=== PATIENT | male | born 1940 | race Caucasian/White ===

== ENCOUNTER 2018-04-29 11:33 | Emergency (ER) | payer OTHER ==
[~2018-04-29] VITALS: Ht 175.3 cm; Wt 90.7 kg
[2018-04-29] MEDS ORDERED: TRAZODONE HCL50 MG PO (11:50)
[2018-04-29] MEDS ORDERED: SODIUM CHLORIDE 0.9% 1000ML 1,000 ML IV ONE (12:15)
--- NOTE | 2018-04-29 13:42 | NUR ---
Connie miranda in ED - 04/29/18 at 1345 by AMELIA +HYPOTENTION WITH DIZZINESS AT DISCHARGE ONCE UP; PT LAID BACK INTO STRETCHER BED ON MONITORS, MD AT BEDSIDE. PT WILL BE MONITORED PER MD ORDERS.
== END 2018-04-29 13:00 | disposition home or self-care (01) ==
LOC: ER 11:33 → FSED 13:00
DX: R11.2 Nausea with vomiting, unspecified (principal); R19.7 Diarrhea, unspecified; E86.0 Dehydration; A04.4 Other intestinal Escherichia coli infections; F17.210 Nicotine dependence, cigarettes, uncomplicated
CPT/HCPCS: 80048; 80076; 85025; 99283; J7030